=== PATIENT | male | born 1945 | race Caucasian/White ===

== ENCOUNTER 2023-12-18 00:51 | Inpatient (IN) ==
[2023-12-18 01:51] LABS: ABS Lymphocytes 0.4 10^3/uL (1.0-4.8); ABS Monocytes 1.2 10^3/uL (0.0-1.1); ABS Neutrophils 14.7 10^3/uL (1.5-7.6); ABS Nucleated RBC 0.07 10^3/ul; Hematocrit 52.3 % (38-53); Hemoglobin 17.5 g/dL (13.2-16.3); Lymphocyte % 2.3 %; Mean Corpuscular Hemoglobin 30.7 pg (27-33); Mean Corpuscular Hgb Conc 33.4 g/dL (31-36); Mean Corpuscular Volume 92.1 fL (80-97); Mean Platelet Volume 9.2 fL (7.5-11.2); Nucleated Red Blood Cells % 0.5 %/100WBC (0.0-0.8); Platelet Count 301 10^3/uL (150-450); Red Blood Count 5.68 10^6/uL (4.06-5.63); Red Cell Distribution Width 16.1 % (12-17); White Blood Count 16.3 10^3/uL (3.6-10.2)
[2023-12-18 02:01] LABS: INR 1.25 (0.83-1.13)
[2023-12-18 02:32] LABS: Albumin 3.6 g/dL (3.2-5.2); Albumin/Globulin Ratio 0.9 (1-3); C Reactive Protein 149.77 mg/L (<8.01); Calcium 9.9 mg/dL (8.6-10.3); Creatinine, Serum 1.2 mg/dL (0.67-1.17); Globulin 3.8 g/dL (2-4); Potassium 5.2 mmol/L (3.5-5.0); Total Bilirubin 1.1 mg/dL (0.2-1.0); Total Protein 7.4 g/dL (6.4-8.9); eGFR CKD-EPI 61.5 (>60)
[2023-12-18 03:09] LABS: High Sensitivity Troponin 1 Hr 35 pg/mL (<20)
[2023-12-18] MEDS: NS 0.9% 500 ml BAG 500 ML IV ONE ×2 (03:11→04:10)
[2023-12-18] MEDS: NS 0.9% 1000 ml BAG 1,000 ML IV ONE (03:35)
[2023-12-18 05:26] LABS: Urine Appearance Turbid; Urine Bilirubin Negative (Negative); Urine Blood 1+ (Negative); Urine Color Yellow; Urine Glucose Negative (Negative); Urine Ketones 1+ (Negative); Urine Nitrite Negative (Negative); Urine Protein 1+ (>=30 mg/dL) (Negative); Urine Specific Gravity 1.025 (1.002-1.030); Urine Urobilinogen 1+ (Negative)
[2023-12-18 05:58] LABS: Urine Benzodiazepine Screen None Detected (None Detect); Urine Cannabinoids Screen None Detected (None Detect); Urine Opiates Screen None Detected (None Detect)
[2023-12-18] MEDS: cefTRIAXone 1 gm/50 mL D5W 1 GM/50 ML BAG IV ONE (06:17)
[2023-12-18 06:26] LABS: Urine Bacteria 1+ /HPF (Absent); Urine Red Blood Cell 1+(3-5/hpf) /HPF (0-Trace); Urine Squamous Epithelial Cell Present /HPF (Absent); Urine White Blood Cell 1+(6-10/hpf) /HPF (0-Trace)
[2023-12-18] MEDS ORDERED: Ondansetron 4 mg VIAL 2 MG/ML 2 ml VIAL IV PRN (06:56)
[2023-12-18] MEDS: Heparin 5000 UNITS/ML 1 mL VIAL SUBCUT SCH (09:49)
[2023-12-19] MEDS: cefTRIAXone 1 gm/50 mL D5W 1 GM/50 ML BAG IV SCH (05:45)
[2023-12-19 10:05] LABS: ABS Lymphocytes 0.5 10^3/uL (1.0-4.8); ABS Monocytes 1.1 10^3/uL (0.0-1.1); Eosinophil % 0.1 %; Hematocrit 42.4 % (38-53); Hemoglobin 14.4 g/dL (13.2-16.3); Lymphocyte % 4.3 %; Mean Corpuscular Hemoglobin 30.9 pg (27-33); Mean Platelet Volume 9.2 fL (7.5-11.2); Platelet Count 207 10^3/uL (150-450); Red Blood Count 4.67 10^6/uL (4.06-5.63); Red Cell Distribution Width 16.3 % (12-17); White Blood Count 12.7 10^3/uL (3.6-10.2)
[2023-12-19 10:27] LABS: Creatinine, Serum 0.84 mg/dL (0.67-1.17); Potassium 4.4 mmol/L (3.5-5.0); eGFR CKD-EPI 88.7 (>60)
[2023-12-19 12:09] LABS: High Sensitivity Troponin 1 Hr 55 pg/mL (<20)
[2023-12-21] MEDS ORDERED: Regadenoson 0.4 MG/5 ML SYRINGE ONE (08:44)
[2023-12-21] MEDS ORDERED: Aminophylline 25 MG/ML VIAL ONE (08:44)
[2023-12-22] MEDS: Lidocaine PATCH 5% PATCH TRANSDERM SCH (14:33)
[2023-12-23 09:24] LABS: Rapid COVID-19 Molecular Undetected (Undetected)
[2023-12-23 09:33] VITALS: BP 97/48
== END 2023-12-23 10:30 | DRG 871 ==
LOC: ED 00:51 → SUATTDRO 06:56 → EDHOLD 06:56 → MED 08:28
PROVIDERS: ADMIT Student in an Organized Health Care Education/Training Program; ATTEND Internal Medicine

== ENCOUNTER 2024-01-06 13:28 | Inpatient (IN) ==
[2024-01-06 14:24] LABS: Hematocrit 38.2 % (38-53); Hemoglobin 12.6 g/dL (13.2-16.3); Mean Corpuscular Hemoglobin 30.5 pg (27-33); Mean Corpuscular Hgb Conc 33.1 g/dL (31-36); Mean Corpuscular Volume 92.2 fL (80-97); Mean Platelet Volume 9.1 fL (7.5-11.2); Platelet Count 582 10^3/uL (150-450); Red Blood Count 4.15 10^6/uL (4.06-5.63); Red Cell Distribution Width 15.9 % (12-17); White Blood Count 31.3 10^3/uL (3.6-10.2)
[2024-01-06] MEDS: Cefepime 2 GM in Dextrose 2 GM/50 ML BAG IV ONE (14:24)
[2024-01-06] MEDS: Lactated Ringers 1000 ml BAG 1,000 ML IV ONE ×2 (14:24→15:01)
[2024-01-06 14:57] LABS: ALT 16 U/L (7-52); Albumin 2.2 g/dL (3.2-5.2); Albumin/Globulin Ratio 0.6 (1-3); Alkaline Phosphatase 283 U/L (35-149); Anion Gap 11 mmol/L (2-16); Blood Urea Nitrogen 38 mg/dL (6-24); CO2 Carbon Dioxide 28 mmol/L (22-32); Calcium 8.8 mg/dL (8.6-10.3); Chloride 101 mmol/L (101-111); Creatinine, Serum 0.76 mg/dL (0.67-1.17); Globulin 3.5 g/dL (2-4); Glucose 86 mg/dL (70-100); Sodium 140 mmol/L (135-145); Total Bilirubin 1.2 mg/dL (0.2-1.0); Total Protein 5.7 g/dL (6.4-8.9); eGFR CKD-EPI 91.4 (>60)
[2024-01-06 15:04] LABS: ABS Basophils 0.1 10^3/uL (0.0-0.1); ABS Lymphocytes 0.6 10^3/uL (1.0-4.8); ABS Monocytes 1.7 10^3/uL (0.0-1.1); ABS Neutrophils 28.9 10^3/uL (1.5-7.6); ABS Nucleated RBC 0.02 10^3/ul; Lymphocyte % 2.1 %
[2024-01-06 15:38] LABS: High Sens Troponin Baseline 32 pg/mL (<20)
[2024-01-06] MEDS: Vancomycin 1,000 MG in NS 0.9% 250 ml 250 ML IVPB ONE (15:42)
[2024-01-06 15:45] LABS: High Sensitivity Troponin 1 Hr 27 pg/mL (<20)
[2024-01-06] MEDS: Iohexol 350 (CONTRAST) 500 ML MDV IV ONE (16:09)
[2024-01-06] MEDS ORDERED: Glucose ORAL 15 GM TUBE PO PRN (19:15)
[2024-01-06] MEDS: Norepinephrine 4 MG/250mL D5W 4,000 MCG/250 ML BAG IV SCH (19:25)
[2024-01-06] MEDS: metroNIDAZOLE IV 500 MG/100ML 500 MG/100 ML BAG IVPB SCH (19:37)
[2024-01-06] MEDS: Enoxaparin 40 MG/0.4 ML SYR SUBCUT SCH (19:40)
[2024-01-06] MEDS ORDERED: metroNIDAZOLE IV 500 MG/100ML 500 MG/100 ML BAG IVPB SCH (20:00)
[2024-01-06 21:22] LABS: INR 1.47 (0.83-1.13)
[2024-01-06 21:56] LABS: Anion Gap 5 mmol/L (2-16); Blood Urea Nitrogen 33 mg/dL (6-24); C Reactive Protein 314.73 mg/L (<8.01); CO2 Carbon Dioxide 28 mmol/L (22-32); Calcium 8.1 mg/dL (8.6-10.3); Chloride 106 mmol/L (101-111); Creatinine, Serum 0.58 mg/dL (0.67-1.17); Glucose 90 mg/dL (70-100); Sodium 139 mmol/L (135-145); eGFR CKD-EPI 99.2 (>60)
[2024-01-06] MEDS: Acetaminophen IV 1 GM/100ML 1,000 MG/100 ML BAG IV PRN (22:27)
[2024-01-06] MEDS: Cefepime 2 GM in Dextrose 2 GM/50 ML BAG IV SCH (22:28)
[2024-01-06] MEDS ORDERED: Cefepime 2 GM in Dextrose 2 GM/50 ML BAG IV SCH (22:30)
[2024-01-07 00:11] LABS: Magnesium 2.1 mg/dL (1.9-2.7); Potassium Redraw 4.8 mmol/L (3.5-5.0)
[2024-01-07 04:31] LABS: Hematocrit 33.6 % (38-53); Hemoglobin 11.1 g/dL (13.2-16.3); Mean Corpuscular Hemoglobin 30.3 pg (27-33); Mean Corpuscular Hgb Conc 33.2 g/dL (31-36); Mean Corpuscular Volume 91.4 fL (80-97); Mean Platelet Volume 8.4 fL (7.5-11.2); Platelet Count 552 10^3/uL (150-450); Red Blood Count 3.67 10^6/uL (4.06-5.63); Red Cell Distribution Width 15.7 % (12-17); White Blood Count 27.5 10^3/uL (3.6-10.2)
[2024-01-07 04:58] LABS: Albumin 1.9 g/dL (3.2-5.2); Albumin/Globulin Ratio 0.7 (1-3); C Reactive Protein 325.39 mg/L (<8.01); Calcium 8.4 mg/dL (8.6-10.3); Creatinine, Serum 0.73 mg/dL (0.67-1.17); Globulin 2.8 g/dL (2-4); Magnesium 2.2 mg/dL (1.9-2.7); Potassium 4.9 mmol/L (3.5-5.0); Total Bilirubin 1.3 mg/dL (0.2-1.0); Total Protein 4.7 g/dL (6.4-8.9); eGFR CKD-EPI 92.5 (>60)
[2024-01-07 05:26] LABS: Urine Specific Gravity >1.050 (1.002-1.030)
[2024-01-07 05:37] LABS: Urine Appearance Clear; Urine Bacteria 1+ /HPF (Absent); Urine Bilirubin Negative (Negative); Urine Blood Negative (Negative); Urine Color Yellow; Urine Glucose Negative (Negative); Urine Granular Casts Present /LPF (Absent); Urine Ketones Trace (Negative); Urine Nitrite Negative (Negative); Urine Protein 1+ (>=30 mg/dL) (Negative); Urine Red Blood Cell Trace(0-2/hpf) /HPF (0-Trace); Urine Squamous Epithelial Cell Present /HPF (Absent); Urine Urobilinogen 1+ (Negative); Urine White Blood Cell Trace(0-5/hpf) /HPF (0-Trace); Urine pH 5.5 (5.0-8.0)
[2024-01-07 05:51] LABS: ABS Lymphocytes 0.5 10^3/uL (1.0-4.8); ABS Monocytes 1.8 10^3/uL (0.0-1.1); ABS Neutrophils 25.1 10^3/uL (1.5-7.6); Lymphocyte % 1.9 %
[2024-01-07] MEDS: Morphine 2 MG/ML SYRINGE IV PRN (07:07)
[2024-01-07] MEDS ORDERED: Glycerin ADULT 2.4 gm SUPP PR PRN (08:13)
[2024-01-07] MEDS ORDERED: Prochlorperazine 5 mg/ml 2 ml VIAL (10 mg) IV PRN (12:41)
[2024-01-07] MEDS ORDERED: Atropine 1% (ORAL/SL) 15 ML BTL SL PRN (12:41)
[2024-01-07] MEDS: Morphine 10 MG/ML VIAL (1 mL) 100 MG in NS 0.9% 100 ml BAG 90 ML IV SCH (12:51)
[2024-01-07 13:16] VITALS: BP 116/54
== END 2024-01-07 15:25 | disposition expired | DRG 871 ==
LOC: ED 13:28 → EDHOLD 17:21 → ICU 17:37
PROVIDERS: ADMIT Student in an Organized Health Care Education/Training Program; ATTEND Student in an Organized Health Care Education/Training Program